=== PATIENT | female | born 1960 | race Caucasian/White ===

== ENCOUNTER 2018-08-18 10:23 | Emergency (ER) | payer BC, OTHER ==
[2018-08-18 10:36] VITALS: BP 121/62; PULSE 75; TEMP 99; BMI 29.8
[2018-08-18] MEDS ORDERED: ACETAMINOPHEN 1000 MG/100 ML VIAL (NON FORMULARY) IVPB ONE (10:48)
[2018-08-18] MEDS ORDERED: SODIUM CHLORIDE 1,000 ML IV STA (10:48)
[2018-08-18] MEDS ORDERED: ACETAMINOPHEN INJECTION 100 ML IVPB ONE (11:01)
[2018-08-18 11:05] LABS: BASO % 0.8 % (0-2.0); EOS % 1.4 % (0-4.5); HEMATOCRIT 39.9 % (32.4-45.2); HEMOGLOBIN 13.7 GM/dL (10.7-15.3); LYMPH % 31.9 % (8-40); MCH 31.8 pg (25.7-33.7); MCHC 34.5 g/dl (32.0-36.0); MEAN CELL VOLUME 92.2 fl (80-96); MONO % 7.6 % (3.8-10.2); NEUT % 58.3 % (42.8-82.8); RBC 4.32 M/mm3 (3.60-5.2); RDW 13.3 % (11.6-15.6); WHITE BLOOD COUNT 8.4 K/mm3 (4.0-10.0)
[2018-08-18 11:14] LABS: PLATELET COUNT 193 K/MM3 (134-434)
--- NOTE | 2018-08-18 11:15 | PDOC ---
History of Present Illness - General Chief Complaint: Syncope/Near Syncope Stated Complaint: POSSIBLE HEAT STROKE Time Seen by Provider: 08/18/18 10:58 - History of Present Illness Initial Comments: 08/18/18 11:04 57 F with h/o HLD presenting to ED with syncopal episode. Pt states that she was working in a hot kitchen this morning. She notes that she had a headache and remembers going to get advil. After taking the pill, she recalls feeling very lightheaded and subsequently fainting. This was witnessed by her family member, who states that she was unconscious on the ground for several seconds before waking up. Pt now feels weak all over, stating she feels like "she was hit by a truck". Still endorses mild L sided headache without N/V. Denies neck pain. Denies CP/SOB/palpitations. Denies F/C. Denies abdominal pain. Denies weakness/numbness in any extremity. Past History - Past Medical History Allergies/Adverse Reactions: Allergies Allergy/AdvReac Type Severity Reaction Status Date / Time No Known Allergies Allergy Verified 08/18/18 10:33 Home Medications: Ambulatory Orders No Home Medications 0 dose .ROUTE UTDICT 03/16/13 COPD: No Hypercholesterolemia: Yes - Suicide/Smoking/Psychosocial Hx Smoking History: Never smoked Hx Alcohol Use: No Substance Use Type: None Review of Systems - Review of Systems Comments:: 08/18/18 11:15 GENERAL/CONSTITUTIONAL: No fever or chills. + generalized weakness. HEAD, EYES, EARS, NOSE AND THROAT: No change in vision. No ear pain or discharge. No sore throat. CARDIOVASCULAR: + syncope, No chest pain, no shortness of breath RESPIRATORY: No cough, wheezing, or hemoptysis. GASTROINTESTINAL: No nausea, vomiting, diarrhea or constipation. GENITOURINARY: No dysuria, frequency, or change in urination. MUSCULOSKELETAL: No joint or muscle swelling or pain. No neck or back pain. SKIN: No rash NEUROLOGIC: No vertigo, no change in strength/sensation. ENDOCRINE: No increased thirst. No abnormal weight change. HEMATOLOGIC/LYMPHATIC: No anemia, easy bleeding, or history of blood clots. ALLERGIC/IMMUNOLOGIC: No hives or skin allergy. *Physical Exam - Vital Signs Last Vital Signs Temp Pulse Resp BP Pulse Ox 99.0 F 75 16 121/62 99 07/11/19 10:33 08/18/18 10:33 08/18/18 10:33 08/18/18 10:33 08/18/18 10:41 - Physical Exam Comments: 08/18/18 11:15 "GENERAL: Awake, alert, and fully oriented, in no acute distress. HEAD: No signs of trauma EYES: PERRLA, EOMI, sclera anicteric, conjunctiva clear ENT: Auricles normal inspection, hearing grossly normal, nares patent, oropharynx clear without exudates. Moist mucosa NECK: Nontender, no stepoffs, Normal ROM, supple, no lymphadenopathy, JVD, or masses LUNGS: Breath sounds equal, clear to auscultation bilaterally. No wheezes, and no crackles HEART: Regular rate and rhythm, normal S1 and S2, no murmurs, rubs or gallops ABDOMEN: Soft, nontender, normoactive bowel sounds. No guarding, no rebound. No masses EXTREMITIES: Normal range of motion, no edema. No clubbing or cyanosis. No cords, erythema, or tenderness NEUROLOGICAL: Cranial nerves II through XII intact. 5/5 strength and sensation in all extremities, Normal speech, normal gait, normal cerebellar function SKIN: Warm, Dry, normal turgor, no rashes or lesions noted. Heart Score/ECG Review - ECG Impressions Comment:: 08/18/18 11:16 NSR, no CARINA/STDs, no TWIs, axis wnl, intervals wnl, rate 70 ED Treatment Course - LABORATORY CBC & Chemistry Diagram: 08/18/18 11:00 08/18/18 11:00 - ADDITIONAL ORDERS Additional order review: Laboratory Results 08/18/18 08/18/18 11:00 11:00 Sodium 141 Potassium 4.2 Chloride 108 H Carbon Dioxide 24 Anion Gap 8 BUN 24.2 H Creatinine 0.7 Est GFR (CKD-EPI)AfAm 113.05 Est GFR (CKD-EPI)NonAf 97.54 Random Glucose 98 Calcium 8.9 Total Bilirubin 0.5 AST 39 H ALT 72 H Alkaline Phosphatase 66 Creatine Kinase 196 H Creatine Kinase Index 1.4 CK-MB (CK-2) 2.9 Troponin I < 0.02 B-Natriuretic Peptide 34.9 Total Protein 6.8 Albumin 3.7 Urine Color Yellow Urine Appearance Clear Urine pH 5.0 Ur Specific [place] 1.028 Urine Protein Negative Urine Glucose (UA) Negative Urine Ketones Negative Urine Blood Negative Urine Nitrite Negative Urine Bilirubin Negative Urine Urobilinogen 0.2 Ur Leukocyte Esterase 1+ H Urine WBC (Auto) 5 Urine RBC (Auto) 1 Urine Casts (Auto) 3 U Epithel Cells (Auto) 3.4 Urine Bacteria (Auto) 178.5 Urine HCG, Qual Negative 08/18/18 11:00 RBC 4.32 MCV 92.2 MCHC 34.5 RDW 13.3 MPV 10.0 Neutrophils % 58.3 Lymphocytes % 31.9 Monocytes % 7.6 Eosinophils % 1.4 Basophils % 0.8 - RADIOLOGY Radiology Studies Ordered: Category Date Time Status HEAD CT WITHOUT CONTRAST [CT] Stat CT Scan 08/18/18 10:48 Completed - Medications Given in the ED: ED Medications Discontinued Medications Generic Name Dose Route Start Last Admin Trade Name Freq PRN Reason Stop Dose Admin Acetaminophen 1,000 mg 08/18/18 10:48 08/18/18 11:08 Ofirmev Injection - IVPB 08/18/18 10:49 1,000 mg ONCE ONE Administration Sodium Chloride 1,000 mls @ 1,000 mls/hr 08/18/18 10:48 08/18/18 11:08 Normal Saline - IV 08/18/18 11:47 1,000 mls/hr ASDIR STA Administration Medical Decision Making - Medical Decision Making 08/18/18 11:16 57 F with syncopal episode. Likely vasovagal in the setting of working in a hot kitchen. Pt with normal EKG, no evidence of arrhythmia. Vitals stable in ED. - CT head - Labs, trop - IVF, tylenol 08/18/18 12:34 Labs wnl, trop negative CT unremarkable Pt reassessed - now feels much better after fluids and tylenol. States that her headache is resolved completely. Pt ambulatory in ED with steady gait Pt is well appearing, with normal vitals. Clinically stable for DC at this time. I discussed the physical exam findings, ancillary test results and final diagnoses with the patient. I answered all of the patient's questions. The patient was satisfied with the care received and felt comfortable with the discharge plan and treatment plan. The patient agrees to follow up with the primary care physician within 24-72 hours. *DC/Admit/Observation/Transfer Diagnosis at time of Disposition: Syncope - Discharge Dispostion Disposition: HOME - Referrals - Patient Instructions Printed Discharge Instructions: DI for Syncope in Adults (Fainting) Additional Instructions: Drink plenty of fluids to stay hydrated. If you experience any lightheadedness, dizziness, chest pain, shortness of breath, or any other concerning symptoms, return to the ER immediately. Otherwise, follow up with your primary doctor within 1 week. - Post Discharge Activity - Attestations Physician Attestion: 08/18/18 12:35 I, Dr. Liban Armenta MD, attest that this document has been prepared under my direction and personally reviewed by me in its entirety. I further attest, that it accurately reflects all work, treatment, procedures and medical decision -making performed by me.
[2018-08-18 11:20] LABS: HCG,QUALITATIVE URINE Negative
[2018-08-18] MEDS ORDERED: METOCLOPRAMIDE HCL INJECTION 10 MG/2 ML VIAL IVPB ONE (11:24)
[2018-08-18 11:40] LABS: ALBUMIN 3.7 g/dl (3.4-5.0); ALK PHOS 66 U/L (45-117); ANION GAP 8 MMOL/L (8-16); BILIRUBIN,TOTAL 0.5 mg/dL (0.2-1); BLOOD UREA NITROGEN 24.2 mg/dL (7-18); CALCIUM 8.9 mg/dL (8.5-10.1); CHLORIDE 108 mmol/L (98-107); CO2 24 mmol/L (21-32); CREATININE 0.7 mg/dL (0.55-1.3); GLUCOSE,RANDOM 98 mg/dL (74-106); N-TERMINAL BNP 34.9 pg/ml (5-125); POTASSIUM 4.2 mmol/L (3.5-5.1); SGOT/AST 39 U/L (15-37); SGPT/ALT 72 U/L (13-61); SODIUM 141 mmol/L (136-145); TOT PROT 6.8 g/dl (6.4-8.2)
[2018-08-18 11:43] LABS: EPI CELLS 3.4 /HPF (0-5/HPF); HYALINE CASTS 3 /lpf (0-8); URINE APPEARANCE CLEAR; URINE BACTERIA 178.5 /hpf (NEGATIVE); URINE BILIRUBIN NEGATIVE (NEGATIVE); URINE COLOR YELLOW; URINE GLUCOSE (UA) NEGATIVE (NEGATIVE); URINE KETONE NEGATIVE (NEGATIVE); URINE LEUK ESTERASE 1+ (NEGATIVE); URINE NITRITE NEGATIVE (NEGATIVE); URINE PROTEIN NEGATIVE (NEGATIVE); URINE RBC 1 /hpf (0-4); URINE UROBILINOGEN 0.2 mg/dL (0.2-1.0); URINE WBC 5 /hpf (0-5)
[2018-08-18] MEDS ORDERED: METOCLOPRAMIDE HCL INJECTION 10 MG/2 ML VIAL ONE (12:32)
--- NOTE | 2018-08-18 17:01 | EKG ---
Test Reason : Blood Pressure : / mmHG Vent. Rate : 070 BPM Atrial Rate : 070 BPM P-R Int : 152 ms QRS Dur : 082 ms QT Int : 422 ms P-R-T Axes : 036 036 043 degrees QTc Int : 455 ms NORMAL SINUS RHYTHM NORMAL ECG NO PREVIOUS ECGS AVAILABLE Confirmed by KAITLIN PUGH MD ([id number]) on 08/18/2018 5:01:02 PM Referred By: Confirmed By:KAITLIN PUGH MD
== END 2018-08-18 12:52 | disposition home or self-care (01) ==
LOC: JER 10:23
PROC: 3E0337Z Introduction of Electrolytic and Water Balance Substance into Peripheral Vein, Percutaneous Approach (ICD-10-PCS; principal; 2018-08-18)
PROC: 3E033NZ Introduction of Analgesics, Hypnotics, Sedatives into Peripheral Vein, Percutaneous Approach (ICD-10-PCS; 2018-08-18)
DX: R55 Syncope and collapse (principal); X30.XXXA Exposure to excessive natural heat, initial encounter; Y93.89 Activity, other specified; Y92.218 Other school as the place of occurrence of the external cause; Y99.0 Civilian activity done for income or pay
CPT/HCPCS: 36415; 70450-TC; 80053; 81003; 82550; 82553; 83880; 84484; 84703; 85025; 93005; 93010; 99283-25; J0131; J7030